=== PATIENT | male | born 1980 | race Caucasian/White ===

== ENCOUNTER 2016-08-23 09:37 | Emergency (ER) | payer MEDICAID ==
--- NOTE | 2016-08-23 11:30 | ER Document Report ---
ED Hand/Wrist Injury - General Chief Complaint: Hand Pain Stated Complaint: HAND PAIN Time seen by provider: 11:18 Mode of Arrival: Ambulatory Notes: 36-year-old male presents to the ED for pain in his right thumb for 3-4 months that is getting worse and pain in his left ring finger the last 3 days that is getting worse. 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 Both area or mildly swollen tender to touch decreased range of motion due to pain. TRAVEL OUTSIDE OF THE [place] IN LAST 30 DAYS: No - HPI Injury to: Thumb - Right hand, Ring finger - Left hand Onset: Other - See above Where: Work Timing: Still present Quality of pain: Pressure, Sharp Severity: Moderate Pain Level: 2 Context: Swelling - Related Data Allergies/Adverse Reactions: No Known Allergies Allergy (Verified 08/23/16 09:42) Past Medical History - General Information source: Patient - Social History Smoking Status: Current Every Day Smoker Cigarette use (# per day): Yes - half pack a day Chew tobacco use (# tins/day): No Smoking Education Provided: Yes - less than 2 minutes Frequency of alcohol use: Heavy - Every 2 or 3 days Drug Abuse: None Occupation: [employer] Lives with: Spouse/Significant other Family History: Arthritis, CAD - PAD, COPD, CVA, Hyperlipidemia, Hypertension, Thyroid Disfunction Patient has suicidal ideation: No Patient has homicidal ideation: No - Past Medical History Cardiac Medical History: Reports: Hx Hypercholesterolemia, Hx Hypertension Pulmonary Medical History: Reports: Hx Asthma, Hx Bronchitis EENT Medical History: Reports: None Neurological Medical History: Reports: None Endocrine Medical History: Reports: None Renal/ Medical History: Reports: Hx Kidney Stones Malignancy Medical History: Reports None GI Medical History: Reports: Hx Colonoscopy, Other - Inguinal hernia that has not been repaired Musculoskeltal Medical History: Reports Hx Musculoskeletal Trauma Skin Medical History: Reports None Psychiatric Medical History: Reports: None Traumatic Medical History: Reports: Hx Fractures - Left lower leg Infectious Medical History: Reports: None Past Surgical History: Reports: Hx Oral Surgery - [place] teeth, Hx Testicular Surgery - Immunizations Hx Diphtheria, Pertussis, Tetanus Vaccination: No Review of Systems - Review of Systems Constitutional: No symptoms reported EENT: No symptoms reported Cardiovascular: No symptoms reported Respiratory: No symptoms reported Gastrointestinal: No symptoms reported Genitourinary: No symptoms reported Male Genitourinary: No symptoms reported Musculoskeletal: Other - Paining swelling to the right palm and left ring finger Skin: No symptoms reported Hematologic/Lymphatic: No symptoms reported Neurological/Psychological: No symptoms reported Physical Exam - Vital signs Vitals: Temp Pulse Resp BP Pulse Ox 97.6 F 96 16 142/89 H 99 08/23/16 09:42 08/23/16 09:42 08/23/16 09:42 08/23/16 09:42 08/23/16 09:42 Interpretation: Normal - General General appearance: Appears well, Alert - HEENT Head: Normocephalic, Atraumatic Eyes: Normal Pupils: PERRL - Respiratory Respiratory status: No respiratory distress Chest status: Nontender Breath sounds: Normal Chest palpation: Normal - Cardiovascular Rhythm: Regular Heart sounds: Normal auscultation Murmur: No - Abdominal Inspection: Normal Distension: No distension Bowel sounds: Normal Tenderness: Nontender Organomegaly: No organomegaly - Back Back: Normal, Nontender - Extremities General upper extremity: Normal temperature General lower extremity: Normal inspection, Nontender, Normal color, Normal ROM , Normal temperature, Normal weight bearing. No: Margarito's sign Hand: Tender - Left ring finger right thumb, No evidence of human bite, Swelling - Left ring finger left thumb. No: No evidence of FB - Neurological Neuro grossly intact: Yes Cognition: Normal Orientation: AAOx4 [place] Coma Scale Eye Opening: Spontaneous [place] Coma Scale Verbal: Oriented [place] Coma Scale Motor: Obeys Commands [place] Coma Scale Total: 15 Speech: Normal Motor strength normal: LUE, RUE, LLE, RLE Sensory: Normal - Psychological Associated symptoms: Normal affect, Normal mood - Skin Skin Temperature: Warm Skin Moisture: Dry Skin Color: Normal Course - Re-evaluation Re-evalutation: 08/23/16 15:25 Discussed x-rays with Dr. Lee and he examined the patient. We'll treat patient with ibuprofen and have follow-up with Dr. Jean Baptiste. - Vital Signs Vital signs: Temp Pulse Resp BP Pulse Ox 97.8 F 70 16 140/87 H 99 08/23/16 12:18 08/23/16 12:18 08/23/16 12:18 08/23/16 12:18 08/23/16 12:18 - Diagnostic Test Radiology reviewed: Image reviewed, Reports reviewed Discharge - Discharge Clinical Impression: Pain of right thumb, left fourth finger pain Condition: Stable Disposition: HOME, SELF-CARE Additional Instructions: Your x-rays for your left ring finger and right thumb were both negative for no bone deformities no foreign bodies. As this pain has gradually developed I will be sending you home on anti-inflammatories and have you follow up with a hand specialist. Ibuprofen Ibuprofen is an excellent, safe drug for pain control. In addition, it has potent antiinflammatory effects which are beneficial, especially in the treatment of injuries, arthritis, or tendonitis. It's best to take ibuprofen with food. Persons with ulcer disease or allergy to aspirin should notify their physician of this before taking ibuprofen. Take the medication exactly as prescribed. Don't take additional doses unless instructed to do so by your doctor. If you develop wheezing, shortness of breath, hives, faintness, stomach pain, vomiting, or dark black stools, return for re-evaluation at once. Oral Narcotic Medication You have been given a prescription for pain control. This medication is a narcotic. It's best taken with food, as nausea can result if taken on an empty stomach. Don't operate machinery or drive within six hours of taking this medication. Do not combine this medicine with alcohol, or with any medication which can cause sedation (such as cold tablets or sleeping pills) unless you get permission from the physician. Narcotics tend to cause constipation. If possible, drink plenty of fluids and eat a diet high in fiber and fruits. Epsom Salt Soaks Soak the wound area in a container of warm epsom salt water. If you can't get the wound area into a bucket or molina, use a folded towel soaked in the epsom salt solution and apply to the area. Use clean hot tap water (about the temperature of a very warm bath), mixing in about one (1) teaspoon for every pint of water. Two gallon --> 16 teaspoons Epsom Salts One gallon --> 8 teaspoons Epsom Salts Two quarts --> 4 teaspoons Epsom Salts One quart --> 2 teaspoons Epsom Salts Soak the wound for about 20 minutes while gently moving it around in the water. Repeat this four (4) times a day. FOLLOW-UP CARE: If you have been referred to a physician for follow-up care, call the physician s office for an appointment as you were instructed or within the next two days. If you experience worsening or a significant change in your symptoms, notify the physician immediately or return to the Emergency Department at any time for re-evaluation. Prescriptions: Hydrocodone/Acetaminophen [[place] 5-325 mg Tablet] 1 tab PO Q6HP PRN #10 tablet PRN Reason: Ibuprofen 800 mg PO Q8HP PRN #20 tablet PRN Reason: Forms: Elevated Blood Pressure, Smoking Cessation Education, Return to Work Referrals: CAROLINE LI MD [Primary Care Provider] - Follow up as needed GABY JEAN BAPTISTE DO [ACTIVE STAFF] - Follow up as needed
[2016-08-23 12:21] VITALS: BP 140/87
== END 2016-08-23 12:23 | disposition home or self-care (01) ==
LOC: ER 09:37
DX: M79.645 Pain in left finger(s) (principal); M79.644 Pain in right finger(s); M79.641 Pain in right hand; M79.89 Other specified soft tissue disorders; F17.210 Nicotine dependence, cigarettes, uncomplicated; Z71.6 Tobacco abuse counseling; I10 Essential (primary) hypertension
CPT/HCPCS: 99283

== ENCOUNTER 2016-11-27 08:12 | Emergency (ER) | payer MEDICAID ==
--- NOTE | 2016-11-27 08:42 | ER Document Report ---
ED ENT - General Chief Complaint: Sore Throat Stated Complaint: SORE THROAT Time Seen by Provider: 11/27/16 08:42 Mode of Arrival: Ambulatory Information source: Patient Notes: Patient is a 36-year-old male who presents to the ER today for sore throat, sinus congestion, cough, fever, chills, feeling fatigued that all began approximately 5-6 days ago and is worsening. Patient has no history of asthma, denies any shortness of breath or wheezing. He has been trying nasal saline at home which has been helping a little. He has been trying drink plenty of fluids. TRAVEL OUTSIDE OF THE [place] IN LAST 30 DAYS: No - Related Data Allergies/Adverse Reactions: No Known Allergies Allergy (Verified 11/27/16 08:17) Past Medical History - General Information source: Patient - Social History Smoking Status: Current Some Day Smoker Family History: Arthritis, CAD - PAD, COPD, CVA, Hyperlipidemia, Hypertension, Thyroid Disfunction Patient has suicidal ideation: No Patient has homicidal ideation: No - Past Medical History Cardiac Medical History: Reports: Hx Hypercholesterolemia, Hx Hypertension Pulmonary Medical History: Reports: Hx Asthma, Hx Bronchitis Denies: Hx COPD, Hx Pneumonia Neurological Medical History: Denies: Hx Seizures Renal/ Medical History: Reports: Hx Kidney Stones. Denies: Hx Peritoneal Dialysis GI Medical History: Reports: Hx Colonoscopy Musculoskeltal Medical History: Denies Hx Arthritis, Reports Hx Musculoskeletal Trauma Traumatic Medical History: Reports: Hx Fractures - Left lower leg Past Surgical History: Reports: Hx Oral Surgery - [place] teeth, Hx Testicular Surgery - Immunizations Hx Diphtheria, Pertussis, Tetanus Vaccination: No Review of Systems - Review of Systems Constitutional: See HPI EENT: See HPI Cardiovascular: No symptoms reported Respiratory: No symptoms reported Gastrointestinal: See HPI Genitourinary: No symptoms reported Male Genitourinary: No symptoms reported Musculoskeletal: No symptoms reported Skin: No symptoms reported Hematologic/Lymphatic: No symptoms reported Neurological/Psychological: No symptoms reported Physical Exam - Vital signs Vitals: Temp Pulse Resp BP Pulse Ox 98.2 F 86 16 143/85 H 98 11/27/16 08:17 11/27/16 08:17 11/27/16 08:17 11/27/16 08:17 11/27/16 08:17 - Notes Notes: PHYSICAL EXAMINATION: GENERAL: Mildly ill-appearing, but in no acute distress. HEAD: Atraumatic, normocephalic. EYES: Pupils equal round and reactive to light, extraocular movements intact, sclera anicteric, conjunctiva are normal. ENT: ear canals without erythema or foreign body, TMs pearly cummings with good bony landmarks, nares with mucoid discharge, oropharynx erythematous with enlarged tonsils without exudates. Moist mucous membranes. NECK: Normal range of motion, supple with bilateral cervical lymphadenopathy LUNGS: Cough, otherwise CTAB and equal. No wheezes rales or rhonchi. HEART: Regular rate and rhythm without murmurs EXTREMITIES: Normal range of motion, no pitting edema. No cyanosis. NEUROLOGICAL: Cranial nerves grossly intact. Normal sensory/motor exams. PSYCH: Normal mood, normal affect. SKIN: Warm, Dry, normal turgor, no rashes or lesions noted Course - Vital Signs Vital signs: Temp Pulse Resp BP Pulse Ox 98.4 F 65 18 137/85 H 99 11/27/16 10:25 11/27/16 11:16 11/27/16 10:25 11/27/16 11:16 11/27/16 11:16 Discharge - Discharge Clinical Impression: Bronchitis Sinusitis Qualifiers: Sinusitis location: unspecified location Chronicity: acute Recurrence: non- recurrent Qualified Code(s): J01.90 - Acute sinusitis, unspecified Condition: Stable Disposition: HOME, SELF-CARE Instructions: Sore Throat ([facility]) Additional Instructions: Return immediately for any new or worsening symptoms. Follow up with primary care provider, call tomorrow to make followup appointment. Prescriptions: Amox Tr/Potassium Clavulanate [Augmentin 875-125 mg Tablet] 1 tab PO BID #20 tablet Fluticasone Propionate [Flonase Nasal [place] 50 Mcg/[place] 16 gm] 2 sprays NASL Q12 #1 inhaler Forms: Return to Work Referrals: CAROLINE LI MD [Primary Care Provider] - Follow up as needed
[2016-11-27] MEDS ORDERED: LIDOCAINE 1% INJ-PF (10 MG/ML) 30 ML SDV INJ ONE (10:26)
[2016-11-27] MEDS ORDERED: CEFTRIAXONE INJ 1000 MG VIAL IM ONE (10:26)
[2016-11-27 11:25] VITALS: BP 137/85
== END 2016-11-27 11:17 | disposition home or self-care (01) ==
LOC: ER 08:12
DX: J01.90 Acute sinusitis, unspecified (principal); J40 Bronchitis, not specified as acute or chronic; R50.9 Fever, unspecified; R53.83 Other fatigue; F17.200 Nicotine dependence, unspecified, uncomplicated; E78.00 Pure hypercholesterolemia, unspecified; I10 Essential (primary) hypertension; Z87.442 Personal history of urinary calculi
CPT/HCPCS: 99283; 96372; 87070; 87880; J3490; J0696

== ENCOUNTER → 2016-12-14 | Outpatient (CLI) | payer MEDICAID ==
--- NOTE | 2016-12-14 11:02 | RADIOLOGY REPORT (SQ) ---
EXAM DESCRIPTION: U/S ABDOMEN LIMITED W/O DOP COMPLETED DATE/TIME: 12/14/2016 9:03 am REASON FOR STUDY: ABN LIVER ENZYMES R74.8 ABNORMAL LEVELS OF OTHER SERUM ENZYMES COMPARISON: None. TECHNIQUE: Dynamic and static grayscale images acquired of the abdomen and recorded on PACS. Additio nal selected color Doppler and spectral images recorded. LIMITATIONS: Midline bowel gas FINDINGS: PANCREAS: Not well seen LIVER: Normal size, increased echogenicity from diffuse hepatocellular disease. No focal masses. LIVER VASCULATURE: Normal directional flow of the main portal vein and hepatic veins. GALLBLADDER: No stones. Normal wall thickness. No pericholecystic fluid. ULTRASOUND-DETECTED DU'S SIGN: Negative. INTRAHEPATIC DUCTS AND COMMON DUCT: CBD and intrahepatic ducts normal caliber. No filling defects. INFERIOR VENA CAVA: Not well seen AORTA: No aneurysm. RIGHT KIDNEY: Normal size. Normal echogenicity. No solid or suspicious masses. No hydronephrosis. No calcifications. PERITONEAL AND RIGHT PLEURAL SPACE: No ascites or effusions. OTHER: No other significant findings. IMPRESSION: Echogenic liver from diffuse hepatocellular disease. No gallstones, gallbladder wall thickening or pericholecystic fluid. No right renal hydronephrosis or stones. Pancreas not well seen TECHNICAL DOCUMENTATION: JOB ID: [id number] [facility]- All Rights Reserved
== END ==
LOC: RAD 08:07
PROVIDERS: ATTEND Family Medicine
DX: R74.8 Abnormal levels of other serum enzymes (principal)
CPT/HCPCS: 76705

== ENCOUNTER 2017-01-31 09:22 | Emergency (ER) | payer MEDICAID ==
[2017-01-31 10:11] LABS: ABSOLUTE BASOPHILS # (AUTO) 0.1 10^3/uL (0.0-0.2); ABSOLUTE EOSINOPHILS # (AUTO) 0.4 10^3/uL (0.0-0.6); ABSOLUTE LYMPHOCYTES (AUTO) 2.2 10^3/uL (0.5-4.7); ABSOLUTE MONOCYTES (AUTO) 0.6 10^3/uL (0.1-1.4); ABSOLUTE NEUT (AUTO) 6.2 10^3/uL (1.7-8.2); BASOPHILS % (AUTO) 0.7 % (0-2); EOSINOPHILS % (AUTO) 4.3 % (0-6); HEMATOCRIT 45.4 % (37.9-51.0); HGB HCT DIFFERENCE 2.6; LYMPHOCYTES % (AUTO) 23.1 % (13-45); MEAN CORPUSCULAR HEMOGLOBIN 31.6 pg (27.0-33.4); MEAN CORPUSCULAR HGB CONC 35.2 g/dL (32.0-36.0); MEAN CORPUSCULAR VOLUME 90 fl (80-97); MONOCYTES % (AUTO) 6.7 % (3-13); RED BLOOD COUNT 5.06 10^6/uL (4.35-5.55); RED CELL DISTRIBUTION WIDTH 13.2 % (11.5-14.0); SEGMENTED NEUTROPHILS % (AUTO) 65.2 % (42-78); WHITE BLOOD COUNT 9.5 10^3/uL (4.0-10.5)
[2017-01-31 10:21] LABS: APPEARANCE,URINE CLEAR; BILIRUBIN,URINE NEGATIVE (NEGATIVE); GLUCOSE, URINE NEGATIVE (NEGATIVE); KETONES,URINE NEGATIVE (NEGATIVE); LEUKOCYTE ESTERASE,URINE NEGATIVE (NEGATIVE); NITRITE,URINE NEGATIVE (NEGATIVE); PROTEIN,URINE NEGATIVE (NEGATIVE); URINE SPECIFIC GRAVITY 1.006; UROBILINOGEN,URINE NEGATIVE mg/dL (<2.0)
[2017-01-31 10:26] LABS: ALANINE AMINOTRANSFERASE 117 U/L (21-72); ALBUMIN 5.1 g/dL (3.5-5.0); ALKALINE PHOSPHATASE 62 U/L (38-126); ANION GAP 10 (5-19); ASPARTATE AMINO TRANSFERASE 65 U/L (17-59); BILIRUBIN,DIRECT 0.3 mg/dL (0.0-0.4); BILIRUBIN,TOTAL 0.5 mg/dL (0.2-1.3); BLOOD UREA NITROGEN 13 mg/dL (7-20); CALCIUM 10.6 mg/dL (8.4-10.2); CARBON DIOXIDE 33 mmol/L (22-30); CHLORIDE 98 mmol/L (98-107); CREATININE RESULT 0.89 mg/dL (0.52-1.25); GLUCOSE 136 mg/dL (75-110); POTASSIUM 4.3 mmol/L (3.6-5.0); SODIUM 141.3 mmol/L (137-145); TOTAL PROTEIN 8.1 g/dL (6.3-8.2)
--- NOTE | 2017-01-31 10:36 | ER Document Report ---
ED GI/ - General Chief Complaint: Abdominal Pain Stated Complaint: ABDOMINAL PAIN Time Seen by Provider: 01/31/17 10:12 Mode of Arrival: Ambulatory Information source: Patient TRAVEL OUTSIDE OF THE [place] IN LAST 30 DAYS: No - HPI Patient complains to provider of: Abdominal pain Onset: Other - 5 days Timing/Duration: Persistent Quality of pain: Achy Severity at maximum: Mild Severity in ED: Mild Pain Level: 1 Associated symptoms: None Exacerbated by: Denies Relieved by: Denies Similar symptoms previously: Yes Recently seen / treated by doctor: Yes Notes: 01/31/17 10:34 Patient is a 36-year-old male presenting to the emergency room today complaining of 5 day history of abdominal bloating, this morning when he bent over in the shower he felt a dull achy pain in his right upper quadrant which is fleeting and completely resolved, he reports approximately 5 days ago he started taking a probiotic, a few days later he drank a couple beers, yesterday evening he found out his father had another stroke and therefore drank a considerable amount of liquor, he denies any nausea or vomiting, no fever or chills, he does report that since taking the probiotics he has been having 4-5 loose but otherwise normal bowel movements daily, he denies any urinary symptoms , patient reports that he had a colonoscopy performed in July which revealed 2 polyps, one being benign and one being "precancerous", he otherwise self-reports as being a "hypochondriac" - Related Data Allergies/Adverse Reactions: No Known Allergies Allergy (Verified 01/31/17 09:30) Past Medical History - General Information source: Patient - Social History Smoking Status: Current Every Day Smoker Chew tobacco use (# tins/day): No Frequency of alcohol use: Social Drug Abuse: None Family History: Arthritis, CAD - PAD, COPD, CVA, Hyperlipidemia, Hypertension, Thyroid Disfunction - Past Medical History Cardiac Medical History: Reports: Hx Hypercholesterolemia, Hx Hypertension Pulmonary Medical History: Reports: Hx Asthma, Hx Bronchitis Denies: Hx COPD, Hx Pneumonia Neurological Medical History: Denies: Hx Seizures Renal/ Medical History: Reports: Hx Kidney Stones. Denies: Hx Peritoneal Dialysis GI Medical History: Reports: Hx Colonoscopy Musculoskeltal Medical History: Denies Hx Arthritis, Reports Hx Musculoskeletal Trauma Traumatic Medical History: Reports: Hx Fractures - Left lower leg Past Surgical History: Reports: Hx Oral Surgery - [place] teeth, Hx Testicular Surgery - Immunizations Hx Diphtheria, Pertussis, Tetanus Vaccination: No Review of Systems - Review of Systems Constitutional: No symptoms reported EENT: No symptoms reported Cardiovascular: No symptoms reported Respiratory: No symptoms reported Gastrointestinal: See HPI Genitourinary: No symptoms reported Male Genitourinary: No symptoms reported Musculoskeletal: No symptoms reported Skin: No symptoms reported Hematologic/Lymphatic: No symptoms reported Neurological/Psychological: No symptoms reported -: Yes All other systems reviewed and negative Physical Exam - Vital signs Vitals: Temp Pulse Resp BP Pulse Ox 97.2 F 91 16 153/84 H 97 01/31/17 09:23 01/31/17 09:23 01/31/17 09:23 01/31/17 09:23 01/31/17 09:23 Interpretation: Normal - General General appearance: Appears well, Alert - HEENT Head: Normocephalic, Atraumatic Eyes: Normal Pupils: PERRL - Respiratory Respiratory status: No respiratory distress Chest status: Nontender Breath sounds: Normal Chest palpation: Normal - Cardiovascular Rhythm: Regular Heart sounds: Normal auscultation Murmur: No - Abdominal Inspection: Normal Distension: No distension Bowel sounds: Normal Tenderness: Nontender Organomegaly: No organomegaly - Back Back: Normal, Nontender - Extremities General upper extremity: Normal inspection, Nontender, Normal color, Normal ROM , Normal temperature General lower extremity: Normal inspection, Nontender, Normal color, Normal ROM , Normal temperature, Normal weight bearing. No: Margarito's sign - Neurological Neuro grossly intact: Yes Cognition: Normal Orientation: AAOx4 [place] Coma Scale Eye Opening: Spontaneous [place] Coma Scale Verbal: Oriented [place] Coma Scale Motor: Obeys Commands [place] Coma Scale Total: 15 Speech: Normal Motor strength normal: LUE, RUE, LLE, RLE Sensory: Normal - Psychological Associated symptoms: Normal affect, Normal mood - Skin Skin Temperature: Warm Skin Moisture: Dry Skin Color: Normal Course - Re-evaluation Re-evalutation: 01/31/17 10:55 Laboratory findings were discussed with patient at bedside which include mildly elevated liver enzymes, likely from recent increased alcohol intake, patient was discharged with instructions to refrain from alcoholic beverage intake, follow-up with his primary care provider or return if symptoms worsen, patient acknowledges understanding and agreement with this plan - Vital Signs Vital signs: Temp Pulse Resp BP Pulse Ox 97.2 F 91 16 153/84 H 97 01/31/17 09:23 01/31/17 09:23 01/31/17 09:23 01/31/17 09:23 01/31/17 09:23 - Laboratory Result Diagrams: 01/31/17 09:51 01/31/17 09:51 Laboratory results interpreted by me: 01/31/17 09:51 Carbon Dioxide 33 H Glucose 136 H Calcium 10.6 H AST 65 H ALT 117 H Albumin 5.1 H Discharge - Discharge Clinical Impression: Abdominal bloating, Elevated liver enzymes, Alcohol abuse Condition: Stable Disposition: HOME, SELF-CARE Instructions: Abdominal Pain ([facility]), Liver Function Abnormality ([facility]), Alcoholic Hepatitis ([facility]) Additional Instructions: Follow up with your primary care provider in one to 2 days. Return to the emergency room immediately if symptoms worsen or any additional concerns. Refrain from consuming alcoholic beverages. Forms: Return to Work
[2017-01-31 11:41] VITALS: BP 118/75
== END 2017-01-31 11:41 | disposition home or self-care (01) ==
LOC: ER 09:22
DX: R14.0 Abdominal distension (gaseous) (principal); F10.10 Alcohol abuse, uncomplicated; R74.8 Abnormal levels of other serum enzymes; R19.4 Change in bowel habit; F17.200 Nicotine dependence, unspecified, uncomplicated; I10 Essential (primary) hypertension; J45.909 Unspecified asthma, uncomplicated
CPT/HCPCS: 36415; 80053; 81001; 83690; 85025; 99284

== ENCOUNTER 2017-03-12 08:10 | Emergency (ER) | payer MEDICAID ==
[2017-03-12] MEDS ORDERED: PANTOPRAZOLE SODIUM 40 MG VIAL IV PRN (09:07)
[2017-03-12] MEDS ORDERED: NORMAL SALINE 1000 ML 1,000 ML IV ONE (09:07)
[2017-03-12] MEDS ORDERED: PANTOPRAZOLE SODIUM 40 MG VIAL IV ONE (09:07)
--- NOTE | 2017-03-12 09:24 | ER Document Report ---
ED Extremity Problem, Lower - General Mode of Arrival: Ambulatory Information source: Patient TRAVEL OUTSIDE OF THE [place] IN LAST 30 DAYS: No - HPI Patient complains to provider of: Pain Location: Foot - left Quality of pain: Sharp - General Chief Complaint: Foot Pain Stated Complaint: FOOT PAIN Time Seen by Provider: 03/12/17 08:59 Notes: Patient is a 36-year-old male who presents to the emergency department today with complaints of left foot pain. Patient states he has been seen by his primary care physician for this pain who referred him to podiatry. He has an appointment with podiatry on March 26. Patient states he has had this pain off and on for quite some time but it is more persistent and more painful this time. Patient states he has tried Biofreeze, ice, Epsom salt, and Aleve with minimal relief. Patient states he "drank himself to sleep last night" secondary to pain. Patient states he does not like taking pain medication because it makes him nauseated. Patient denies any trauma or recent injury to the foot. (NOAM CABA) - Related Data Allergies/Adverse Reactions: No Known Allergies Allergy (Verified 01/31/17 09:30) Past Medical History - General Information source: Patient - Social History Smoking Status: Never Smoker Cigarette use (# per day): No Frequency of alcohol use: None Drug Abuse: None Lives with: Family Family History: Arthritis, CAD - PAD, COPD, CVA, Hyperlipidemia, Hypertension, Thyroid Disfunction Patient has suicidal ideation: No Patient has homicidal ideation: No - Past Medical History Cardiac Medical History: Reports: Hx Hypercholesterolemia, Hx Hypertension Pulmonary Medical History: Reports: Hx Asthma, Hx Bronchitis Renal/ Medical History: Reports: Hx Kidney Stones GI Medical History: Reports: Hx Colonoscopy Musculoskeltal Medical History: Reports Hx Musculoskeletal Trauma Traumatic Medical History: Reports: Hx Fractures - Left lower leg Past Surgical History: Reports: Hx Oral Surgery - [place] teeth, Hx Testicular Surgery - Immunizations Hx Diphtheria, Pertussis, Tetanus Vaccination: No Review of Systems - Review of Systems Constitutional: No symptoms reported EENT: No symptoms reported Cardiovascular: No symptoms reported Respiratory: No symptoms reported Gastrointestinal: No symptoms reported Genitourinary: No symptoms reported Male Genitourinary: No symptoms reported Musculoskeletal: See HPI, Joint pain - left foot Skin: No symptoms reported Hematologic/Lymphatic: No symptoms reported Neurological/Psychological: No symptoms reported -: Yes All other systems reviewed and negative Physical Exam - Vital signs Vitals: Temp Pulse Resp BP Pulse Ox 98.7 F 81 16 134/89 H 99 03/12/17 08:30 03/12/17 08:30 03/12/17 08:30 03/12/17 08:30 03/12/17 08:30 - Notes Notes: PHYSICAL EXAM GENERAL: Alert, interacts well. No acute distress. HEAD: Normocephalic, atraumatic. EYES: Pupils equal, round, and reactive to light. Extraocular movements intact. ENT: Oral mucosa moist, tongue midline. NECK: Full range of motion. Supple. Trachea midline. LUNGS: No respiratory distress. ABDOMEN: Non-distended. EXTREMITIES: Moves all 4 extremities spontaneously. No edema, posterior tibialis and dorsalis pedis pulses 2/4 bilaterally. No cyanosis. Tenderness with palpation over the medial arch of the left foot, tenderness is more significant distally as opposed to closer to the heel, no erythema, swelling, or limit in range of motion. Sensation is intact. NEUROLOGICAL: Alert and oriented x3. Normal speech. PSYCH: Normal affect, normal mood. SKIN: Warm, dry, normal turgor. No rashes or lesions noted. (NOAM CABA) Course - Re-evaluation Re-evalutation: 03/12/17 09:27 Exam consistent with plantar fasciitis, already has follow-up with podiatry, discussed at length with this patient why I do not do steroid injections for plantar fasciitis as I am not experienced in these and could cause damage. Discussed that Lidoderm patches may help relieve his pain somewhat. Patient started the visit stating that his doctor already offered Percocet and he does not want pills he wants something that is going to fix this, after we discussed stretches and splinting and follow-up with podiatry patient then stated that he wanted something for pain so he did not have to drink himself to sleep every night, we discussed the Lidoderm patches would help with this, patient then stated that he was not a pill head and I could test his blood and he does not understand why am not giving him any pills to help with pain, he then reiterated that he did not want pain pills from his doctor, he then stated that he does not understand why I will not help him and why I will not just give him 5 mg hydrocodone's. I discussed with patient that I am confused as to why the patient thinks I am not trying to help him and that Lidoderm patches would help but narcotics are not appropriate for plantar fasciitis. Patient will be discharged home. Patient states he will continue to drink [place] every night to help him sleep. 03/12/17 16:08 (ELDER RITCHIE) - Vital Signs Vital signs: Temp Pulse Resp BP Pulse Ox 98.1 F 80 16 127/80 H 100 03/12/17 09:39 03/12/17 09:39 03/12/17 09:39 03/12/17 09:39 03/12/17 09:39 Discharge - Discharge Clinical Impression: Plantar fasciitis of left foot Condition: Stable Disposition: HOME, SELF-CARE Additional Instructions: Plantar Fasciitis or Heel Spur Plantar fasciitis is an inflammation of a ligament on the underside of the foot. It can be caused by injury, overuse such as running, or poorly fitting shoes. There may be a bone spur on the heel if inflammation has persisted a long time. Plantar fasciitis is treated with stretching exercises and antiinflammatory medicine. More severe cases may require injection of cortisone. It may take several weeks to get better. If nothing gives relief, an operation to remove the heel spur may help. Please keep your follow-up appointment with your plastic joint maker on the . There are splints for plantar fasciitis that you can buy at drug stores. Please consider this. You may also stand flat-footed and use her toes to pickling tank operator a towel and release it, this can help with the pain. Call or return if there is redness, increasing pain, swelling, fever, or any other new symptoms. Prescriptions: Lidocaine [Lidoderm] 1 each TP DAILY #7 adh..patch Referrals: CAROLINE LI MD [Primary Care Provider] - Follow up as needed Scribe Attestation: 03/12/17 16:09 I personally performed the services described in the documentation, reviewed and edited the documentation which was dictated to the scribe in my presence, and it accurately records my words and actions. (ELDER RITCHIE) Scribe Documentation - Scribe Written by Mackenzie:: Mackenzie Díaz, 03/12/2017 1155 acting as scribe for :: Mar
[2017-03-12] MEDS ORDERED: LIDOCAINE 5% (700 MG) TRANSDERMAL ADH..PATCH TP ONE (09:25)
[2017-03-12 09:52] VITALS: BP 127/80
== END 2017-03-12 09:52 | disposition home or self-care (01) ==
LOC: ER 08:10
DX: M72.2 Plantar fascial fibromatosis (principal); M25.572 Pain in left ankle and joints of left foot; I10 Essential (primary) hypertension; J45.909 Unspecified asthma, uncomplicated; Z87.81 Personal history of (healed) traumatic fracture
CPT/HCPCS: 99283; J3490

== ENCOUNTER 2017-05-22 10:25 | Emergency (ER) | payer MEDICAID ==
--- NOTE | 2017-05-22 11:05 | ER Document Report ---
ED Medical Screen (RME) - General TRAVEL OUTSIDE OF THE [place] IN LAST 30 DAYS: No <MARIANNE BLANTON - Last Filed: 05/22/17 11:17> - HPI Associated Symptoms: denies: None, Abdominal pain, Allergy/hay fever, Body/ muscle aches, Chest pain, Chills, Cough (productive), Cough (nonproductive), Diarrhea, Dizzy/lightheaded, Drooling, Dysuria, Earache, Fever, Headache, Hoarseness, Hurts to breath, Leg swelling, Nausea, Rhinorrhea, Shortness of breath, Sinus pain/drainage, Slow to respond, Sore throat, Sweating, Vaginal bleeding, Vomiting, Weakness, Other Exacerbated by: denies: Denies, Supine, Sitting, Standing, Movement, Walking, Coughing, Deep breathing, Food, Other <MEDARDOSHRADDHA HULLGIAN - Last Filed: 05/22/17 14:09> - General Chief Complaint: Palpitations Stated Complaint: PALPATATIONS Time Seen by Provider: 05/22/17 11:01 Notes: This 37-year-old male patient past history of hypertension and hyperlipidemia. He reports heart skipping beats for the past few days. He did have this problem in the past and had a echo about a year ago with Dr. Bolton and Holter monitor which showed rare PVC and PAC and a normal echo. He does take metoprolol 200 mg daily, losartan 50 mg daily, Maxzide 75/50, and lovastatin 40 mg. He did drink a pint of liquor last night consoling his depressed mother-in- law which may play a part. He reports in the past he was drinking much more regularly when he was having regular symptoms and has cut back quite a bit since last year. He had been symptom-free for probably the past year. I have greeted and performed a rapid initial assessment of this patient. A comprehensive ED assessment and evaluation of the patient, analysis of test results and completion of the medical decision making process will be conducted by additional ED providers. (MARIANNE BLANTON) - HPI Notes: 05/22/17 11:44 This 37-year-old male patient past history of hypertension and hyperlipidemia. He reports heart skipping beats for the past few days. He did have this problem in the past and had a echo about a year ago with Dr. Che and Holter monitor which showed rare PVC and PAC and a normal echo. He does take metoprolol 200 mg daily, losartan 50 mg daily, Maxzide 75/50, and lovastatin 40 mg. He did drink a pint of liquor last night consoling his depressed mother-in- law which may play a part. He reports in the past he was drinking much more regularly when he was having regular symptoms and has cut back quite a bit since last year. He had been symptom-free for probably the past year. The above triage note is conformed to his history. He also takes 1 mg of Ativan 3 times a day, get frequent panic attacks. Currently has no chest pain palpitation or diaphoresis. Denies any left arm numbness tingling sensation nausea vomiting. Feeling comfortable (ESTHER REDD) - Related Data Allergies/Adverse Reactions: No Known Allergies Allergy (Verified 05/22/17 10:25) Home Medications: Current Home Medications Metoprolol Succinate [Toprol Xl] 200 mg PO DAILY 05/22/17 [History] Past Medical History - Past Medical History Cardiac Medical History: Reports: Hx Hypercholesterolemia, Hx Hypertension Pulmonary Medical History: Reports: Hx Asthma, Hx Bronchitis Denies: Hx COPD, Hx Pneumonia Neurological Medical History: Denies: Hx Seizures Renal/ Medical History: Reports: Hx Kidney Stones. Denies: Hx Peritoneal Dialysis GI Medical History: Reports: Hx Colonoscopy Musculoskeltal Medical History: Denies Hx Arthritis, Reports Hx Musculoskeletal Trauma Traumatic Medical History: Reports: Hx Fractures - Left lower leg Past Surgical History: Reports: Hx Oral Surgery - [place] teeth, Hx Testicular Surgery - Immunizations Hx Diphtheria, Pertussis, Tetanus Vaccination: No <MARIANNE BLANTON - Last Filed: 05/22/17 11:17> - Social History Drug Abuse: denies: None, Bath salts, Cocaine, Heroin, Marijuana, Methamphetamine, Prescription drugs, Other Lives with: Alone Family history: CAD, CVA <ESTHER REDD - Last Filed: 05/22/17 14:09> Review of Systems - Review of Systems Constitutional: denies: No symptoms reported, See HPI, Chills, Diaphoresis, Fever, Malaise, Weakness, Other, Weight gain, Weight loss, Recent illness EENT: denies: No symptoms reported, See HPI, Eye pain, Eye discharge, Blurred vision, Tearing, Double vision, Ear pain, Ear discharge, Nose pain, Nose congestion, Nose discharge, Sinus pressure, Sinus discharge, Throat pain, Difficulty swallowing, Throat swelling, Mouth pain, Mouth swelling, Dental problem, Vertigo, Other Cardiovascular: Palpitations Respiratory: denies: No symptoms reported, See HPI, Cough, Hurts to breathe, Hemoptysis, Short of breath, Sputum, Stridor, Wheezing, Other Genitourinary: denies: No symptoms reported, See HPI, Burning, Dysuria, Discharge, Frequency, Flank pain, Hematuria, Incontinence, Pain, Urgency, Retention, Other Skin: denies: No symptoms reported, See HPI, Change in color, Change in hair/ nails, Dryness, Lesions, Lumps, Rash, Other Neurological/Psychological: denies: No symptoms reported, See HPI, Confusion, Dementia, Depression, Hallucinations, Anxiety, Homicidal ideation, Sensory change, Weakness, Gait changes, Loss of power, Paralysis, Seizure, Lost consciousness, Headaches, Speech impairment, Numbness, Suicidal ideation, Tingling, Tremor, Other <ESTHER REDD - Last Filed: 05/22/17 14:09> Physical Exam <MARIANNE BLANTON - Last Filed: 05/22/17 11:17> <ESTHER REDD - Last Filed: 05/22/17 14:09> - Vital signs Vitals: Temp Pulse Resp BP Pulse Ox 98.6 F 86 20 140/86 H 99 05/22/17 10:53 05/22/17 10:53 05/22/17 10:53 05/22/17 10:53 05/22/17 10:53 - Notes Notes: General exam: Alert oriented 3, appears well, not in any acute distress, body habitus--- obese ---. HEENT: Normocephalic atraumatic pupils were equal reactive to light extraocular muscles were within normal range. Neck is supple no JVD no lymphadenopathy. Oral mucosa-not erythematous, no lesions noted no tonsillar enlargement. Chest no lesions, nontraumatic, nontender. No deformity Lungs: Bilaterally clear breath sounds no rales or wheezing, no adventitial sounds, no dullness on percussion. Cardiovascular system: Normal S1-S2 no murmurs, no gallop. Regular rhythm. No peripheral edema over the lower extremities. Gastrointestinal: Normal appearance, positive bowel sounds in all 4 quadrants, no Hepatosplenomegaly, no obvious masses, no obvious abdominal bruit. No horseshoe dullness. Inguinal region: No masses or obvious inguinal hernia noted Genitourinary: Rectal exam: Nervous system: Alert oriented 3, no cranial nerve weakness, no focal neurological deficit noted. Sensation is intact over the lower extremities for pain and touch. Reflexes are 2+ over both patella. Upper extremities: No trauma as noted, normal range of motion for both shoulders , elbows and wrist. Lower extremity: No traumas or deformities noted, normal range of motion for flexion extension abduction abduction of both hip joints, Normal flexion and extension of knee joint. Normal range of motion for plantarflexion dorsiflexion and eversion inversion for both ankles. Skin: No erythema, no edema, no obvious lesions noted (ESTHER REDD) Course <MARIANNE BLANTON - Last Filed: 05/22/17 11:17> - Laboratory Result Diagrams: 05/22/17 11:22 05/22/17 11:22 <ESTHER REDD - Last Filed: 05/22/17 14:09> - Re-evaluation Re-evalutation: 05/22/17 13:58 He is doing well currently has no major complaint 05/22/17 13:58 05/22/17 14:00 (ESTHER REDD) - Vital Signs Vital signs: Temp Pulse Resp BP Pulse Ox 98.6 F 86 20 140/86 H 99 05/22/17 10:53 05/22/17 10:53 05/22/17 10:53 05/22/17 10:53 05/22/17 10:53 - Laboratory Laboratory results interpreted by me: 05/22/17 11:22 Carbon Dioxide 32 H AST 72 H ALT 154 H - Diagnostic Test Radiology results interpreted by me: 05/22/17 13:57 Diagnostic report text EXAM DESCRIPTION: CHEST SINGLE VIEW COMPLETED DATE/TIME: 05/22/2017 12:09 pm REASON FOR STUDY: DYSPNEA COMPARISON: 01/22/2016. EXAM PARAMETERS: NUMBER OF VIEWS: One view. TECHNIQUE: Single frontal radiographic view of the chest acquired. RADIATION DOSE: NA LIMITATIONS: None. FINDINGS: LUNGS AND PLEURA: No opacities, masses or pneumothorax. No pleural effusion. MEDIASTINUM AND HILAR STRUCTURES: No masses. Contour normal. HEART AND VASCULAR STRUCTURES: Heart normal in size. Normal vasculature. BONES: No acute findings. HARDWARE: None in the chest. OTHER: No other significant finding. IMPRESSION: NO ACUTE RADIOGRAPHIC FINDING IN THE CHEST. TECHNICAL DOCUMENTATION: JOB ID: [id number] [employer]- All Rights Reserved Dictated by: CHANTELLE WAY MD [id number] (ESTHER REDD) Doctor's Discharge <MARIANNE BLANTON - Last Filed: 05/22/17 11:17> <ESTHER REDD - Last Filed: 05/22/17 14:09> - Discharge Clinical Impression: Palpitation, Anxiety Clinical Impression: (Ruled Out): Non-STEMI (non-ST elevated myocardial infarction) Disposition: HOME, SELF-CARE Referrals: CAROLINE LI MD [Primary Care Provider] - Follow up as needed
[2017-05-22 11:49] LABS: ABSOLUTE BASOPHILS # (AUTO) 0.1 10^3/uL (0.0-0.2); ABSOLUTE EOSINOPHILS # (AUTO) 0.4 10^3/uL (0.0-0.6); ABSOLUTE LYMPHOCYTES (AUTO) 1.8 10^3/uL (0.5-4.7); ABSOLUTE MONOCYTES (AUTO) 0.9 10^3/uL (0.1-1.4); ABSOLUTE NEUT (AUTO) 5.4 10^3/uL (1.7-8.2); BASOPHILS % (AUTO) 0.7 % (0-2); EOSINOPHILS % (AUTO) 4.2 % (0-6); HEMATOCRIT 43.4 % (37.9-51.0); HEMOGLOBIN 15.2 g/dL (13.5-17.0); HGB HCT DIFFERENCE 2.2; LYMPHOCYTES % (AUTO) 21.1 % (13-45); MEAN CORPUSCULAR HEMOGLOBIN 31.6 pg (27.0-33.4); MEAN CORPUSCULAR HGB CONC 35.1 g/dL (32.0-36.0); MEAN CORPUSCULAR VOLUME 90 fl (80-97); RED BLOOD COUNT 4.82 10^6/uL (4.35-5.55); RED CELL DISTRIBUTION WIDTH 12.9 % (11.5-14.0); WHITE BLOOD COUNT 8.5 10^3/uL (4.0-10.5)
--- NOTE | 2017-05-22 11:58 | EKG REPORT ---
SEVERITY:- NORMAL ECG - SINUS RHYTHM : Confirmed by: Garima Bolton 22-May-2017 11:57:42
[2017-05-22 12:06] LABS: ALANINE AMINOTRANSFERASE 154 U/L (21-72); ALKALINE PHOSPHATASE 75 U/L (38-126); ANION GAP 13 (5-19); ASPARTATE AMINO TRANSFERASE 72 U/L (17-59); BILIRUBIN,DIRECT 0.4 mg/dL (0.0-0.4); BILIRUBIN,TOTAL 0.5 mg/dL (0.2-1.3); BLOOD UREA NITROGEN 18 mg/dL (7-20); CALCIUM 10.2 mg/dL (8.4-10.2); CARBON DIOXIDE 32 mmol/L (22-30); CHLORIDE 98 mmol/L (98-107); CREATININE RESULT 0.92 mg/dL (0.52-1.25); GLUCOSE 86 mg/dL (75-110); MAGNESIUM 2.1 mg/dL (1.6-2.3); POTASSIUM 4.3 mmol/L (3.6-5.0); SODIUM 142.8 mmol/L (137-145); TOTAL PROTEIN 7.9 g/dL (6.3-8.2)
--- NOTE | 2017-05-22 12:37 | RADIOLOGY REPORT (SQ) ---
EXAM DESCRIPTION: CHEST SINGLE VIEW COMPLETED DATE/TIME: 05/22/2017 12:09 pm REASON FOR STUDY: DYSPNEA COMPARISON: 01/22/2016. EXAM PARAMETERS: NUMBER OF VIEWS: One view. TECHNIQUE: Single frontal radiographic view of the chest acquired. RADIATION DOSE: NA LIMITATIONS: None. FINDINGS: LUNGS AND PLEURA: No opacities, masses or pneumothorax. No pleural effusion. MEDIASTINUM AND HILAR STRUCTURES: No masses. Contour normal. HEART AND VASCULAR STRUCTURES: Heart normal in size. Normal vasculature. BONES: No acute findings. HARDWARE: None in the chest. OTHER: No other significant finding. IMPRESSION: NO ACUTE RADIOGRAPHIC FINDING IN THE CHEST. TECHNICAL DOCUMENTATION: JOB ID: [id number] [employer]- All Rights Reserved
[2017-05-22 14:47] VITALS: BP 115/77
--- NOTE | 2017-05-23 13:37 | EKG REPORT ---
SEVERITY:- NORMAL ECG - SINUS RHYTHM : Confirmed on behalf of: Garima Bolton 23-May-2017 13:37:02
== END 2017-05-22 14:56 | disposition home or self-care (01) ==
LOC: ER 10:25
DX: R00.2 Palpitations (principal); F41.9 Anxiety disorder, unspecified; I10 Essential (primary) hypertension; E78.5 Hyperlipidemia, unspecified; Z79.899 Other long term (current) drug therapy
CPT/HCPCS: 36415; 71010; 80053; 83735; 84443; 85025; 93005; 93010; 99285

== ENCOUNTER → 2017-12-10 | Outpatient (CLI) | payer SELFPAY ==
--- NOTE | 2017-12-10 11:57 | RADIOLOGY REPORT (SQ) ---
EXAM DESCRIPTION: HIP LEFT AP/LATERAL COMPLETED DATE/TIME: 12/10/2017 11:14 am REASON FOR STUDY: CHRONIC LEFT HIP PAIN M25.552 PAIN IN LEFT HIP COMPARISON: CT abdomen pelvis 05/17/2015 NUMBER OF VIEWS: Two views. TECHNIQUE: AP pelvis and additional frog-leg view of the left hip. LIMITATIONS: None. FINDINGS: MINERALIZATION: Normal. LEFT HIP: No fracture or dislocation. No significant joint space narrowing or bony spurring. No wor risome bone lesions. Benign bone island in the left femoral head, unchanged from CT 2014. RIGHT HIP: No fracture or dislocation. No significant joint space narrowing or bony spurring. No wo rrisome bone lesions. PUBIS AND ISCHIUM: No fracture. PELVIS: No fracture. SACRUM: No fracture or dislocation. No worrisome bone lesions. LOWER LUMBAR SPINE: No fracture or dislocation. No worrisome bone lesions. No significant disc disea se. SOFT TISSUES: No findings. OTHER: No other significant finding. IMPRESSION: NEGATIVE STUDY OF THE LEFT HIP AND PELVIS. NO RADIOGRAPHIC EVIDENCE OF ACUTE INJURY. TECHNICAL DOCUMENTATION: JOB ID: [id number] [employer]- All Rights Reserved Reading location - IP/workstation name: [email or web address]
== END ==
LOC: RAD 10:45
PROVIDERS: ATTEND Family Medicine
DX: M25.552 Pain in left hip (principal)

== ENCOUNTER 2018-03-13 08:40 | Emergency (ER) | payer SELFPAY ==
[2018-03-13 08:57] VITALS: BP 141/98
[2018-03-13] MEDS ORDERED: HYDROCOD/ACETAMIN 7.5-325 MG/15 ML ORAL SOLN UDCUP PO ONE (09:53)
[2018-03-13] MEDS ORDERED: PREDNISONE 20 MG TABLET PO ONE (09:54)
--- NOTE | 2018-03-13 09:59 | ER Document Report ---
ED General - General Chief Complaint: Groin Pain Stated Complaint: GROIN PAIN Time Seen by Provider: 03/13/18 09:31 TRAVEL OUTSIDE OF THE [place] IN LAST 30 DAYS: No - HPI Notes: Patient is a 37-year-old male that presents to the emergency department for chief complaint of left elbow pain and right inguinal hernia pain. She has history of left elbow tendinitis and olecranon bursitis over the last few years. He states over the last 2 days he has had re-exacerbation of his pain. He describes a sharp left elbow pain that is worse with movement. Pain is located over his olecranon process. The pain is constant and worse with movement. He denies any injury. He denies fevers or chills. He has tried Aleve at home with minimal relief. Patient has also had right inguinal hernia for the past few years and states over the last 1-2 weeks it has more frequently been bothering him. He states it is a sharp pain that is intermittent mostly with lifting. Currently he is not having any pain in his right groin. He was told to see a general surgeon as needed by his primary care doctor but has never made an appointment. He denies any color changes to his groin or scrotum. He denies any penile discharge or scrotal edema. Past Medical History: Retention, hyperlipidemia Past Surgical History: Cyst removed from jaw Social History: Daily tobacco, occasional alcohol, denies drugs Family History: Reviewed and noncontributory for presenting illness Allergies: Reviewed, see documented allergy list. REVIEW OF SYSTEMS: CONSTITUTIONAL : No fever No chills No diaphoresis No recent illness EENT: No vision changes No congestion No sore throat CARDIOVASCULAR: No chest pain No palpitations RESPIRATORY: No shortness of breath No cough No difficulty breathing GASTROINTESTINAL: No abdominal pain No nausea No vomiting No diarrhea GENITOURINARY: No dysuria Right groin pain No hematuria No difficulty urinating MUSCULOSKELETAL: No back pain No leg pain Left elbow pain SKIN: No rashes No lesions LYMPHATIC: No swollen, enlarged glands. NEUROLOGICAL: No lightheadedness No headache No weakness No paresthesias PSYCHIATRIC: No anxiety No depression PHYSICAL EXAMINATION: Vital signs reviewed, nursing noted reviewed. GENERAL: Well-appearing, well-nourished and in no acute distress. HEAD: Atraumatic, normocephalic. EYES: Eyes appear normal, extraocular movements intact, sclera anicteric, conjunctiva are normal. ENT: nares patent, oropharynx clear without exudates. Moist mucous membranes. NECK: Normal range of motion, supple without lymphadenopathy LUNGS: Breath sounds clear to auscultation bilaterally and equal. No wheezes rales or rhonchi. HEART: Regular rate and rhythm without murmurs ABDOMEN: Soft, nontender, normoactive bowel sounds. No rebound, guarding, or rigidity. No masses appreciated. : Right inguinal hernia easily reducible. Normal cremasteric reflex. No scrotal edema or erythema. No testicular tenderness. EXTREMITIES: Swollen left olecranon bursa with tenderness to palpation. No left elbow bony tenderness or joint effusion or erythema or calor. Good range of motion, no pitting or edema. NEUROLOGICAL: No focal neurological deficits. Moves all extremities spontaneously Motor and sensory grossly intact on exam. PSYCH: Normal mood, normal affect. SKIN: Warm, Dry, normal turgor, no rashes or lesions noted on exposed skin - Related Data Allergies/Adverse Reactions: No Known Allergies Allergy (Verified 05/22/17 10:25) Past Medical History - Social History Smoking Status: Unknown if Ever Smoked Chew tobacco use (# tins/day): No Frequency of alcohol use: None Drug Abuse: None Family History: Arthritis, CAD - PAD, COPD, CVA, Hyperlipidemia, Hypertension, Thyroid Disfunction Patient has suicidal ideation: No Patient has homicidal ideation: No - Past Medical History Cardiac Medical History: Reports: Hx Hypercholesterolemia, Hx Hypertension Pulmonary Medical History: Reports: Hx Asthma, Hx Bronchitis Denies: Hx COPD, Hx Pneumonia Neurological Medical History: Denies: Hx Seizures Renal/ Medical History: Reports: Hx Kidney Stones. Denies: Hx Peritoneal Dialysis GI Medical History: Reports: Hx Colonoscopy Musculoskeletal Medical History: Denies Hx Arthritis, Reports Hx Musculoskeletal Trauma Traumatic Medical History: Reports: Hx Fractures - Left lower leg Past Surgical History: Reports: Hx Oral Surgery - [place] teeth, Hx Testicular Surgery - Immunizations Hx Diphtheria, Pertussis, Tetanus Vaccination: No Review of Systems - Review of Systems Notes: Dictated Physical Exam - Vital signs Vitals: Temp Pulse Resp BP Pulse Ox 98.8 F 85 18 141/98 H 98 03/13/18 08:56 03/13/18 08:56 03/13/18 08:56 03/13/18 08:56 03/13/18 08:56 - Notes Notes: Dictated Course - Re-evaluation Re-evalutation: 03/13/18 09:59 Vitals reviewed and stable. Nursing notes reviewed. Patient's right inguinal hernia is not incarcerated or strangulated and is currently asymptomatic. He was told to see a general surgeon for elective repair. He was counseled on return precautions including symptoms of strangulation and incarceration. He also has a left olecranon bursitis that will be treated with anti- inflammatories and prednisone. Patient was given one Castana in the emergency room for symptomatic treatment as well as a first dose of prednisone. There is no signs of septic arthritis. Patient will follow with his primary care next week as already scheduled. Discharged home in stable condition. - Vital Signs Vital signs: Temp Pulse Resp BP Pulse Ox 98.8 F 85 18 141/98 H 98 03/13/18 08:56 03/13/18 08:56 03/13/18 08:56 03/13/18 08:56 03/13/18 08:56 Discharge - Discharge Clinical Impression: Olecranon bursitis, left elbow, Inguinal hernia, right Condition: Stable Disposition: HOME, SELF-CARE Instructions: Olecranon Bursitis ([facility]), Hernia ([facility]) Additional Instructions: Please return to the emergency department if you have any worsening, or concern of your symptoms. Please return to the emergency department if you develop chest pain, difficulty breathing, severe abdominal pain, or ongoing vomiting. Please follow-up with your primary care physician in 2-3 days and any other recommended physicians. If prescribed, take all medications as directed. If you have any questions or concerns do not hesitate to return the emergency department for evaluation. If your hernia becomes constantly painful and you are unable to reduce it or if it begins to change colors please emergently return to the ER. Prescriptions: Prednisone [Deltasone 20 mg Tablet] 2 tab PO DAILY 4 Days tablet Referrals: CAROLINE LI MD [Primary Care Provider] - Follow up in 1 week
== END 2018-03-13 10:20 | disposition home or self-care (01) ==
LOC: ER 08:40
DX: K40.90 Unilateral inguinal hernia, without obstruction or gangrene, not specified as recurrent (principal); M70.21 Olecranon bursitis, right elbow; M25.521 Pain in right elbow; I10 Essential (primary) hypertension; J45.909 Unspecified asthma, uncomplicated
CPT/HCPCS: 99283; J7512

== ENCOUNTER 2018-05-12 08:23 | Emergency (ER) | payer SELFPAY ==
--- NOTE | 2018-05-12 09:42 | ER Document Report ---
HPI - HPI Time Seen by Provider: 05/12/18 08:56 Pain Level: 3 Notes: Patient is a 37-year-old male with no significant past medical history aside from hypertension mental health disorder who presents to the ED complaining of right-sided maxillary sinus pain, swelling, nasal congestion/discharge, headache over the last week. Patient states that he has been using medicines without any relief. He denies any drug allergies. He is still able to eat and drink without any difficulties otherwise. He is urinating normally. Denies drug allergies. Denies any headache, fever, neck pain, sore throat, chest pain , palpitations, syncope, cough, shortness of breath, wheeze, dyspnea, abdominal pain, nausea/vomiting/diarrhea, urinary retention, dysuria, hematuria, or rash. - ROS Systems Reviewed and Negative: Yes All other systems reviewed and negative - CONSTITUTIONAL Constitutional: DENIES: Fever, Chills - REPRODUCTIVE Reproductive: DENIES: : Past Medical History - Social History Smoking Status: Current Every Day Smoker Frequency of alcohol use: Social Family History: Arthritis, CAD - PAD, COPD, CVA, Hyperlipidemia, Hypertension, Thyroid Disfunction Patient has suicidal ideation: No Patient has homicidal ideation: No - Past Medical History Cardiac Medical History: Reports: Hx Hypercholesterolemia, Hx Hypertension Pulmonary Medical History: Reports: Hx Asthma, Hx Bronchitis Denies: Hx COPD, Hx Pneumonia Neurological Medical History: Denies: Hx Seizures Renal/ Medical History: Reports: Hx Kidney Stones. Denies: Hx Peritoneal Dialysis GI Medical History: Reports: Hx Colonoscopy Musculoskeletal Medical History: Denies Hx Arthritis, Reports Hx Musculoskeletal Trauma Traumatic Medical History: Reports: Hx Fractures - Left lower leg Past Surgical History: Reports: Hx Oral Surgery - [place] teeth, Hx Testicular Surgery - Immunizations Hx Diphtheria, Pertussis, Tetanus Vaccination: No Vertical Provider Document - CONSTITUTIONAL Agree With Documented VS: Yes Notes: PHYSICAL EXAMINATION: GENERAL: Well-appearing, well-nourished and in no acute distress. A&Ox4. Answers questions appropriately. Moves comfortably w/o notable distress HEAD: Atraumatic, normocephalic. EYES: Pupils equal round and reactive to light, extraocular movements intact, sclera anicteric, conjunctiva are normal. ENT: EAC clear b/l. TM's intact b/l without erythema, fluid, or perforation. Nares patent and with yellow discharge. oropharynx no erythema without exudates. No tonsilar hypertrophy without erythema or exudate. No palatine shift. Uvula midline. No tongue protrusion. No drooling, hoarseness, or airway compromise. Moist mucous membranes. + rt maxillary sinus tenderness and mild swelling noted. NECK: Normal range of motion, supple without lymphadenopathy. No rigidity/ meningismus. LUNGS: Breath sounds clear to auscultation bilaterally and equal. No wheezes rales or rhonchi. No retractions HEART: Regular rate and rhythm without murmurs, rubs, gallops. ABDOMEN: Soft, nontender, nondistended abdomen. No guarding, no rebound. No masses appreciated. Normal bowel sounds present. No CVA tenderness bilaterally. No hepatosplenomegaly. NEUROLOGICAL: Normal speech, normal gait. Normal sensory, motor exams PSYCH: Normal mood, normal affect. SKIN: Warm, Dry, normal turgor, no rashes or lesions noted. - INFECTION CONTROL TRAVEL OUTSIDE OF THE [place] IN LAST 30 DAYS: No Course - Re-evaluation Re-evalutation: 05/12/18 09:37 Patient is an afebrile, well-hydrated, 37-year-old male who presents to the ED with acute sinusitis, suspect viral. Vitals are acceptable without significant tachycardia, tachypnea, or hypoxia. PE is otherwise unremarkable. Pt is borderline for what I would consider bacterial infection at this time. No labs or imaging warranted. Pt is non-toxic appearing and is tolerating PO w/o difficulty. Low suspicion for any sepsis, meningitis, severe dehydration, respiratory compromise, or other systemic emergent condition at this time. Patient is aware that condition can change from initial presentation and she needs to monitor symptoms closely and seek medical attention with any acute changes. Patient has been very persistent for an antibiotic even though I have thoroughly reviewed my suspicion of it being viral. Advised patient that I would like him to use generic Afrin for 3-5 days with Flonase and Mucinex. I will send him home with a pocket prescription for doxycycline (pope pay) that he may fill only with worsening symptoms or development of fever in the next 2- 3 days. Recheck with your PCM this week. Return to the ED with any worsening/ concerning symptoms otherwise as reviewed discharge. Patient is in agreement. - Vital Signs Vital signs: Temp Pulse Resp BP Pulse Ox 97.9 F 75 16 140/93 H 96 05/12/18 08:29 05/12/18 08:29 05/12/18 08:29 05/12/18 08:29 05/12/18 08:29 Discharge - Discharge Clinical Impression: Acute URI, Sinus pain Condition: Stable Disposition: HOME, SELF-CARE Instructions: Upper Respiratory Illness ([facility]), Sinusitis ([facility]) Additional Instructions: Maintain adequate fluid intake Take meds as directed afte r 2-3 days with worsening symptoms or development of fever over 100.4. tylenol/ibuprofen as needed over the counter cold medication as needed for symptoms (i.e. generic afrin, mucinex, and flonase--cheapest over the counter) Humidified air may help Wash your hands regularly Wear a mask when coughing F/u: with your PCM in 3-5 days for a recheck Return to the ED with any fever, worsening pain, chest pain, palpitations, syncope, worsening FOSTER, neck pain/stiffness, shortness of breath, wheezing, drooling, trouble swallowing/breathing, abdominal pain, n/v/d, rash, or worsening/concerning symptoms otherwise. Prescriptions: Doxycycline Hyclate 100 mg PO BID #20 capsule Forms: Elevated Blood Pressure Referrals: CAROLINE LI MD [NO LOCAL MD] - 05/15/18
[2018-05-12 09:57] VITALS: BP 138/76
== END 2018-05-12 09:57 | disposition home or self-care (01) ==
LOC: ER 08:23
DX: J01.90 Acute sinusitis, unspecified (principal); J34.89 Other specified disorders of nose and nasal sinuses; I10 Essential (primary) hypertension; F17.200 Nicotine dependence, unspecified, uncomplicated
CPT/HCPCS: 99283

== ENCOUNTER 2018-10-15 21:09 | Emergency (ER) | payer SELFPAY ==
[2018-10-15 21:39] VITALS: BP 144/93
[2018-10-15] MEDS ORDERED: MAG HYDROX/AL HYDROX/SIMETH SUSP 30 ML UDCUP PO ONE (22:49)
[2018-10-15] MEDS ORDERED: METOCLOPRAMIDE HCL ORAL SOLN 10 MG/10 ML UDCUP PO ONE (22:49)
[2018-10-15] MEDS ORDERED: LIDOCAINE 2% VISCOUS SOLN 20 ML UDCUP PO ONE (22:49)
--- NOTE | 2018-10-15 22:51 | ER Document Report ---
ED Medical Screen (RME) - General Chief Complaint: Chest Pain Stated Complaint: CHEST PAIN Time Seen by Provider: 10/15/18 22:47 Primary Care Provider: MARIANNE PEREIRA [Primary Care Provider] - Follow up as needed Notes: Patient is a 38-year-old male who presents to the emergency department with a chief complaint of chest pain and shortness of breath. He states that his symptoms started yesterday. He describes his pain as a dagger and his chest just self the left of his sternum. He states that he also felt gassy today and took some Gas-X, but had little relief. He also has been taking some Prilosec, with no relief. He states the pain does come and go. He has a past medical history of hypertension and anxiety. He is currently taking medication for these problems. Exam: Nontoxic in appearance I have greeted and performed a rapid initial assessment of this patient. A comprehensive ED assessment and evaluation of the patient, analysis of test results and completion of medical decision making process will be conducted by an additional ED providers. TRAVEL OUTSIDE OF THE [place] IN LAST 30 DAYS: No - Related Data Allergies/Adverse Reactions: No Known Allergies Allergy (Verified 10/15/18 22:39) Past Medical History - Social History Family history: CAD, CVA - Past Medical History Cardiac Medical History: Reports: Hx Hypercholesterolemia, Hx Hypertension Pulmonary Medical History: Reports: Hx Asthma, Hx Bronchitis Denies: Hx COPD, Hx Pneumonia Neurological Medical History: Denies: Hx Seizures Renal/ Medical History: Reports: Hx Kidney Stones. Denies: Hx Peritoneal Dialysis GI Medical History: Reports: Hx Colonoscopy Musculoskeltal Medical History: Denies Hx Arthritis, Reports Hx Musculoskeletal Trauma Traumatic Medical History: Reports: Hx Fractures - Left lower leg Past Surgical History: Reports: Hx Oral Surgery - [place] teeth, Hx Testicular Surgery - Immunizations Hx Diphtheria, Pertussis, Tetanus Vaccination: No Physical Exam - Vital signs Vitals: Temp Pulse Resp BP Pulse Ox 98.3 F 80 18 144/93 H 97 10/15/18 21:38 10/15/18 21:38 10/15/18 21:38 10/15/18 21:38 10/15/18 21:38 Course - Vital Signs Vital signs: Temp Pulse Resp BP Pulse Ox 98.3 F 80 18 144/93 H 97 10/15/18 21:38 10/15/18 21:38 10/15/18 21:38 10/15/18 21:38 10/15/18 21:38 Doctor's Discharge - Discharge Referrals: MARIANNE PEREIRA [Primary Care Provider] - Follow up as needed
--- NOTE | 2018-10-15 22:58 | EKG REPORT ---
SEVERITY:- NORMAL ECG - SINUS RHYTHM : Confirmed by: Garima Bolton 15-Oct-2018 22:58:13
--- NOTE | 2018-10-15 23:11 | RADIOLOGY REPORT (SQ) ---
EXAM DESCRIPTION: XR CHEST 1 VIEW COMPLETED DATE/TME: 10/15/2018 22:48 CLINICAL HISTORY: 38 years, Male, chest pain COMPARISON: None. NUMBER OF VIEWS: 1 TECHNIQUE: Portable chest LIMITATIONS: None. FINDINGS: Heart size normal. Lungs clear. No pneumothorax IMPRESSION: Negative chest copyright 2011 [email or web address]- All Rights Reserved
[2018-10-15 23:50] LABS: ABSOLUTE BASOPHILS # (AUTO) 0.1 10^3/uL (0.0-0.2); ABSOLUTE EOSINOPHILS # (AUTO) 0.3 10^3/uL (0.0-0.6); ABSOLUTE LYMPHOCYTES (AUTO) 2.1 10^3/uL (0.5-4.7); ABSOLUTE MONOCYTES (AUTO) 0.6 10^3/uL (0.1-1.4); ABSOLUTE NEUT (AUTO) 6.3 10^3/uL (1.7-8.2); BASOPHILS % (AUTO) 0.7 % (0-2); EOSINOPHILS % (AUTO) 3.5 % (0-6); HEMATOCRIT 41.5 % (37.9-51.0); HEMOGLOBIN 14.6 g/dL (13.5-17.0); LYMPHOCYTES % (AUTO) 22.3 % (13-45); MEAN CORPUSCULAR HEMOGLOBIN 31.4 pg (27.0-33.4); MEAN CORPUSCULAR HGB CONC 35.1 g/dL (32.0-36.0); MEAN CORPUSCULAR VOLUME 89 fl (80-97); MONOCYTES % (AUTO) 6.7 % (3-13); PLATELET COUNT 262 10^3/uL (150-450); RED BLOOD COUNT 4.64 10^6/uL (4.35-5.55); RED CELL DISTRIBUTION WIDTH 13.2 % (11.5-14.0); SEGMENTED NEUTROPHILS % (AUTO) 66.8 % (42-78); TOTAL CELLS COUNTED % (AUTO) 100 %; WHITE BLOOD COUNT 9.5 10^3/uL (4.0-10.5)
[2018-10-16 00:13] LABS: ALANINE AMINOTRANSFERASE 163 U/L (21-72); ALBUMIN 4.8 g/dL (3.5-5.0); ALKALINE PHOSPHATASE 59 U/L (38-126); ANION GAP 12 (5-19); ASPARTATE AMINO TRANSFERASE 80 U/L (17-59); BILIRUBIN,DIRECT 0.3 mg/dL (0.0-0.4); BILIRUBIN,TOTAL 0.5 mg/dL (0.2-1.3); BLOOD UREA NITROGEN 16 mg/dL (7-20); CALCIUM 9.9 mg/dL (8.4-10.2); CARBON DIOXIDE 28 mmol/L (22-30); CHLORIDE 99 mmol/L (98-107); CREATINE KINASE 312 U/L (55-170); GLUCOSE 108 mg/dL (75-110); POTASSIUM 3.8 mmol/L (3.6-5.0); SODIUM 139.4 mmol/L (137-145); TOTAL PROTEIN 7.6 g/dL (6.3-8.2)
[2018-10-16 00:33] LABS: TROPONIN I < 0.012 ng/mL
--- NOTE | 2018-10-16 01:24 | ER Document Report ---
ED General - General Chief Complaint: Chest Pain Stated Complaint: CHEST PAIN Time Seen by Provider: 10/15/18 22:47 Primary Care Provider: MARIANNE PEREIRA [Primary Care Provider] - Follow up as needed TRAVEL OUTSIDE OF THE [place] IN LAST 30 DAYS: No - HPI Notes: Patient is a 38-year-old male who presents to the emergency department for evaluation of chest pain. He points just to an area left of the sternum. It is linear. Describe it as a sharp and stabbing pain. He states that it started yesterday, only lasts a few seconds, and is intermittent in nature. He denies any associated shortness of breath, nausea, diaphoresis, near syncope. Nothing seems to make it better or worse. He does admit to being under an extreme amount of stress. He has a history of anxiety as well as high blood pressure. He is been taking his medications as prescribed. He has gained a significant amount of weight over the last year. He has a history of high blood pressure as well as high cholesterol, but could not tolerate statins. - Related Data Allergies/Adverse Reactions: No Known Allergies Allergy (Verified 10/15/18 22:39) Past Medical History - General Information source: Patient - Social History Smoking Status: Current Every Day Smoker Frequency of alcohol use: Occasional Drug Abuse: None Family History: Arthritis, CAD - PAD, COPD, CVA, Hyperlipidemia, Hypertension, Thyroid Disfunction Patient has suicidal ideation: No Patient has homicidal ideation: No - Past Medical History Cardiac Medical History: Reports: Hx Hypercholesterolemia, Hx Hypertension Pulmonary Medical History: Reports: Hx Asthma, Hx Bronchitis Denies: Hx COPD, Hx Pneumonia Neurological Medical History: Denies: Hx Seizures Renal/ Medical History: Reports: Hx Kidney Stones. Denies: Hx Peritoneal Dialysis GI Medical History: Reports: Hx Colonoscopy Musculoskeletal Medical History: Denies Hx Arthritis, Reports Hx Musculoskeletal Trauma Traumatic Medical History: Reports: Hx Fractures - Left lower leg Past Surgical History: Reports: Hx Oral Surgery - [place] teeth, Hx Testicular Surgery - Immunizations Hx Diphtheria, Pertussis, Tetanus Vaccination: No Review of Systems - Review of Systems Constitutional: No symptoms reported EENT: No symptoms reported Cardiovascular: See HPI Respiratory: No symptoms reported Gastrointestinal: No symptoms reported Genitourinary: No symptoms reported Musculoskeletal: No symptoms reported Skin: No symptoms reported Neurological/Psychological: No symptoms reported Physical Exam - Vital signs Vitals: Temp Pulse Resp BP Pulse Ox 98.3 F 80 18 144/93 H 97 10/15/18 21:38 10/15/18 21:38 10/15/18 21:38 10/15/18 21:38 10/15/18 21:38 - Notes Notes: Vital signs reviewed, please refer to chart. Patient is normocephalic, atraumatic. Pupils equal round, reactive to light. Neck is supple without meningismus. Heart is regular rate and rhythm. Lungs are clear to auscultation bilaterally. Abdomen is soft, nontender, normoactive bowel sounds throughout. Extremities without cyanosis, clubbing, edema. Posterior calves are nontender. Peripheral pulses are equal. Skin is warm and dry. Patient is awake, alert, neurological exam is nonfocal. Course - Re-evaluation Re-evalutation: 10/16/18 01:22 Patient presents to the emergency department for evaluation of chest pain. Is been ongoing since yesterday. The patient has a heart score of 2. He does have several modifiable risk factors, including being overweight, smoking. His blood pressure is elevated here. He admits to "white coat syndrome." We talked about lifestyle changes. We talked about multiple possible etiologies of his chest pain. Certainly increased stress would be a possibility. He states he is taking his medications as prescribed. He plans to lose weight, quit smoking. He actually has a appointment with his primary care physician in the next 2 weeks. I explained to the patient I could not rule out coronary artery disease as an etiology of his pain, but it seemed unlikely. His lab work-up here was unremarkable. Imaging unremarkable. EKG showed no significant abnormalities. Will be had and have him follow-up. He understands if his pain returns, or if you develop new or concerning symptoms of any sort, he is to return immediately to the emergency department for reevaluation. - Vital Signs Vital signs: Temp Pulse Resp BP Pulse Ox 98.3 F 80 18 144/93 H 97 10/15/18 21:38 10/15/18 21:38 10/15/18 21:38 10/15/18 21:38 10/15/18 21:38 - Laboratory Result Diagrams: 10/15/18 23:36 10/15/18 23:36 Laboratory results interpreted by me: 10/15/18 23:36 AST 80 H ALT 163 H Creatine Kinase 312 H - Diagnostic Test Radiology reviewed: Reports reviewed - No acute cardiopulmonary disease - EKG Interpretation by Me Additional EKG results interpreted by me: 10/16/18 01:23 Sinus mechanism with a rate of 72 bpm. Normal axis and intervals, no acute ST changes concerning for ischemia or infarction. Discharge - Discharge Clinical Impression: Chest pain Condition: Stable Disposition: HOME, SELF-CARE Instructions: Chest Pain of Unclear Cause ([facility]) Additional Instructions: Address lifestyle changes as discussed. Follow-up with your primary care physician as scheduled this month. Return to the emergency department with worsening or new concerning symptoms. Forms: Elevated Blood Pressure, Smoking Cessation Education Referrals: MARIANNE PEREIRA [Primary Care Provider] - Follow up as needed
== END 2018-10-16 01:36 | disposition home or self-care (01) ==
LOC: ER 21:09
DX: R07.9 Chest pain, unspecified (principal); F17.200 Nicotine dependence, unspecified, uncomplicated; I10 Essential (primary) hypertension; J45.909 Unspecified asthma, uncomplicated
CPT/HCPCS: 93005; 99285; 36415; 82553; 82550; 85025; 80053; 84484; 71045; 93010; J3490

== ENCOUNTER 2018-10-19 09:52 | Emergency (ER) | payer SELFPAY ==
--- NOTE | 2018-10-19 10:14 | ER Document Report ---
ED Medical Screen (RME) - General Chief Complaint: Diarrhea Stated Complaint: DIARRHEA Time Seen by Provider: 10/19/18 10:03 Primary Care Provider: MARIANNE PEREIRA [Primary Care Provider] - Follow up as needed Mode of Arrival: Ambulatory Information source: Patient Notes: 38-year-old male presented to ED for complaint of diarrhea since . He states he was seen in the emergency room on Saturday for chest pain but diagnosed with increasing GERD was given a GI cocktail which relieved all symptoms. By he was having loose stools on Saturday he was having liquid stools he states that he no longer has any appetite does not have any nausea and vomiting but is having multiple liquid stools a day. He states his daughter has nausea and vomiting but no diarrhea. He does have a history of GERD and diverticulosis. He is also had polyps. He states he had a colonoscopy and has to have a repeat due to polyps that were precancerous. He is alert oriented respirations regular and unlabored lungs clear to auscultation bowel sounds hyperactive. He does smoke reports a pack a day drinks 3 days a week and lives with his significant other and daughter. I have greeted and performed a rapid initial assessment of this patient. A comprehensive ED assessment and evaluation of the patient, analysis of test results and completion of medical decision making process will be conducted by an additional ED providers. TRAVEL OUTSIDE OF THE [place] IN LAST 30 DAYS: No - Related Data Allergies/Adverse Reactions: No Known Allergies Allergy (Verified 10/19/18 09:53) Past Medical History - Social History Family history: CAD, CVA - Past Medical History Cardiac Medical History: Reports: Hx Hypercholesterolemia, Hx Hypertension Pulmonary Medical History: Reports: Hx Asthma, Hx Bronchitis Denies: Hx COPD, Hx Pneumonia Neurological Medical History: Denies: Hx Seizures Renal/ Medical History: Reports: Hx Kidney Stones. Denies: Hx Peritoneal Dialysis GI Medical History: Reports: Hx Colonoscopy Musculoskeltal Medical History: Denies Hx Arthritis, Reports Hx Musculoskeletal Trauma Traumatic Medical History: Reports: Hx Fractures - Left lower leg Past Surgical History: Reports: Hx Oral Surgery - [place] teeth, Hx Testicular Surgery - Immunizations Hx Diphtheria, Pertussis, Tetanus Vaccination: No Physical Exam - Vital signs Vitals: Temp Pulse Resp BP Pulse Ox 98.2 F 90 16 147/90 H 100 10/19/18 09:56 10/19/18 09:56 10/19/18 09:56 10/19/18 09:56 10/19/18 09:56 Course - Vital Signs Vital signs: Temp Pulse Resp BP Pulse Ox 98.2 F 90 16 147/90 H 100 10/19/18 09:56 10/19/18 09:56 10/19/18 09:56 10/19/18 09:56 10/19/18 09:56 Doctor's Discharge - Discharge Referrals: MARIANNE PEREIRA [Primary Care Provider] - Follow up as needed
[2018-10-19 10:43] LABS: ABSOLUTE EOSINOPHILS # (AUTO) 0.3 10^3/uL (0.0-0.6); ABSOLUTE LYMPHOCYTES (AUTO) 1.8 10^3/uL (0.5-4.7); ABSOLUTE MONOCYTES (AUTO) 0.9 10^3/uL (0.1-1.4); APPEARANCE,URINE CLEAR; BASOPHILS % (AUTO) 0.4 % (0-2); BILIRUBIN,URINE NEGATIVE (NEGATIVE); COLOR,URINE YELLOW; EOSINOPHILS % (AUTO) 2.2 % (0-6); GLUCOSE, URINE NEGATIVE (NEGATIVE); HEMATOCRIT 43.5 % (37.9-51.0); KETONES,URINE NEGATIVE (NEGATIVE); LEUKOCYTE ESTERASE,URINE NEGATIVE (NEGATIVE); LYMPHOCYTES % (AUTO) 14.7 % (13-45); MEAN CORPUSCULAR HGB CONC 34.5 g/dL (32.0-36.0); MEAN CORPUSCULAR VOLUME 90 fl (80-97); MONOCYTES % (AUTO) 7.8 % (3-13); NITRITE,URINE NEGATIVE (NEGATIVE); PLATELET COUNT 270 10^3/uL (150-450); PROTEIN,URINE NEGATIVE (NEGATIVE); RED BLOOD COUNT 4.84 10^6/uL (4.35-5.55); RED CELL DISTRIBUTION WIDTH 13.3 % (11.5-14.0); SEGMENTED NEUTROPHILS % (AUTO) 74.9 % (42-78); TOTAL CELLS COUNTED % (AUTO) 100 %; URINE SPECIFIC GRAVITY 1.019; UROBILINOGEN,URINE NEGATIVE mg/dL (<2.0); WHITE BLOOD COUNT 11.9 10^3/uL (4.0-10.5)
[2018-10-19 10:45] LABS: ALANINE AMINOTRANSFERASE 339 U/L (21-72); ALBUMIN 4.6 g/dL (3.5-5.0); ALKALINE PHOSPHATASE 71 U/L (38-126); ANION GAP 14 (5-19); ASPARTATE AMINO TRANSFERASE 157 U/L (17-59); BILIRUBIN,DIRECT 0.3 mg/dL (0.0-0.4); BILIRUBIN,TOTAL 0.6 mg/dL (0.2-1.3); BLOOD UREA NITROGEN 15 mg/dL (7-20); CALCIUM 9.3 mg/dL (8.4-10.2); CARBON DIOXIDE 28 mmol/L (22-30); CHLORIDE 101 mmol/L (98-107); GLUCOSE 118 mg/dL (75-110); LIPASE 106.5 U/L (23-300); POTASSIUM 3.6 mmol/L (3.6-5.0); SODIUM 142.7 mmol/L (137-145); TOTAL PROTEIN 7.5 g/dL (6.3-8.2)
[2018-10-19] MEDS ORDERED: LOPERAMIDE HCL 2 MG CAPSULE PO ONE (13:01)
--- NOTE | 2018-10-19 13:41 | ER Document Report ---
ED General - General Chief Complaint: Diarrhea Stated Complaint: DIARRHEA Time Seen by Provider: 10/19/18 10:03 Primary Care Provider: MARIANNE PEREIRA [Primary Care Provider] - Follow up as needed Mode of Arrival: Ambulatory Notes: 38-year-old male with hypertension, GERD presents to the emergency department for diarrhea since . He says that he has not been nauseated but did have an episode where he felt like he brought up some acid. He has had multiple episodes of diarrhea, over 15 since 2:00 this morning. He denies fevers or chills, is not nauseated, denies shortness of breath or chest pain, denies abdominal pain, denies any urinary symptoms, does complain of weakness. No other complaints TRAVEL OUTSIDE OF THE [place] IN LAST 30 DAYS: No - Related Data Allergies/Adverse Reactions: No Known Allergies Allergy (Verified 10/19/18 09:53) Past Medical History - General Information source: Patient - Social History Smoking Status: Current Every Day Smoker Family History: Arthritis, CAD - PAD, COPD, CVA, Hyperlipidemia, Hypertension, Thyroid Disfunction Patient has suicidal ideation: No Patient has homicidal ideation: No - Past Medical History Cardiac Medical History: Reports: Hx Hypercholesterolemia, Hx Hypertension Pulmonary Medical History: Reports: Hx Asthma, Hx Bronchitis Denies: Hx COPD, Hx Pneumonia Neurological Medical History: Denies: Hx Seizures Renal/ Medical History: Reports: Hx Kidney Stones. Denies: Hx Peritoneal Dialysis GI Medical History: Reports: Hx Colonoscopy Musculoskeletal Medical History: Denies Hx Arthritis, Reports Hx Musculoskeletal Trauma Traumatic Medical History: Reports: Hx Fractures - Left lower leg Past Surgical History: Reports: Hx Oral Surgery - [place] teeth, Hx Testicular Surgery - Immunizations Hx Diphtheria, Pertussis, Tetanus Vaccination: No Review of Systems - Review of Systems Constitutional: See HPI Cardiovascular: See HPI Respiratory: See HPI Gastrointestinal: See HPI Genitourinary: See HPI Neurological/Psychological: See HPI Physical Exam - Vital signs Vitals: Temp Pulse Resp BP Pulse Ox 98.2 F 90 16 147/90 H 100 10/19/18 09:56 10/19/18 09:56 10/19/18 09:56 10/19/18 09:56 10/19/18 09:56 - Notes Notes: PHYSICAL EXAMINATION: Reviewed vital signs and charting by RN GENERAL: Alert, interacts well. No acute distress. HEAD: Normocephalic, atraumatic. EYES: Pupils equal and round. Extraocular movements intact. ENT: Oral mucosa moist, tongue midline. NECK: Full range of motion. Supple. Trachea midline. LUNGS: Clear to auscultation bilaterally, no wheezes, rales, or rhonchi. No respiratory distress. HEART: Regular rate and rhythm. No murmur ABDOMEN: soft, non-tender. Non-distended. Bowel sounds present. no McBurney's point tenderness, no Casanova sign. EXTREMITIES: Moves all 4 extremities spontaneously. No edema, No cyanosis. Normal distal neurovascular exam BACK: No CVAT NEUROLOGIC: Oriented and appropriate. Normal speech. PSYCH: Normal affect, normal mood. SKIN: Warm, dry, normal turgor. No rashes or lesions noted. Course - Re-evaluation Re-evalutation: 10/19/18 13:32 Overall well-appearing. Patient with profuse diarrhea that he describes as pure water. Unclear what the source is but he did eat out at a restaurant prior to. He says his daughter is having symptoms of vomiting. Patient is not tachycardic. Patient is well-hydrated. I talked with patient and told him to increase his fluids. I gave him an Imodium. We will send a stool for testing. I will call him with results. 10/19/18 13:42 - Vital Signs Vital signs: Temp Pulse Resp BP Pulse Ox 98.2 F 90 16 147/90 H 100 10/19/18 10:40 10/19/18 09:56 10/19/18 09:56 10/19/18 09:56 10/19/18 09:56 - Laboratory Result Diagrams: 10/19/18 10:18 10/19/18 10:18 Laboratory results interpreted by me: 10/19/18 10/19/18 10:18 10:18 WBC 11.9 H Absolute Neutrophils 9.0 H Glucose 118 H AST 157 H ALT 339 H Discharge - Discharge Clinical Impression: Diarrhea Qualifiers: Diarrhea type: unspecified type Qualified Code(s): R19.7 - Diarrhea, unspecified Condition: Good Disposition: HOME, SELF-CARE Additional Instructions: You are seen in the emergency department this morning for diarrhea. It is unclear why you are having this but we are sending her stool for testing. If it is positive I will call you if it is negative then the results will be negative. It is okay to take Imodium as directed on the package to help slow down your diarrhea. Please continue to hydrate profusely. If you develop fevers, chills, intractable nausea or vomiting, you have persistent diarrhea, severe intractable abdominal pain, or any other concerns please merely return to the emergency de partment. Referrals: MARIANNE PEREIRA [Primary Care Provider] - Follow up as needed
[2018-10-19 14:16] VITALS: BP 135/82
== END 2018-10-19 14:16 | disposition home or self-care (01) ==
LOC: ER 09:52
DX: R19.7 Diarrhea, unspecified (principal); R00.0 Tachycardia, unspecified; I10 Essential (primary) hypertension; F17.200 Nicotine dependence, unspecified, uncomplicated; J45.909 Unspecified asthma, uncomplicated
CPT/HCPCS: 36415; 80053; 81001; 83690; 85025; 87045; 87205; 87493; 99284